=== PATIENT | male | born 2000 | race Caucasian/White ===

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

== ENCOUNTER 2022-01-29 04:10 | Observation (INO) ==
[2022-01-29] MEDS ORDERED: Ondansetron 4 mg VIAL 2 MG/ML 2 ml VIAL IV ONE (04:41)
[2022-01-29] MEDS ORDERED: NS 0.9% 1000 ml BAG 1,000 ML IV ONE (04:41)
[2022-01-29 05:01] LABS: ABS Eosinophils 0.3 10^3/ul (0-0.6); ABS Lymphocytes 2.3 10^3/ul (1.0-4.8); ABS Monocytes 0.2 10^3/ul (0-0.8); ABS Neutrophils 17.5 10^3/ul (1.5-7.7); Eosinophil % 1.3 %; Hematocrit 41 % (42-52); Hemoglobin 13.9 g/dL (14.0-18.0); Lymphocyte % 11.3 %; Mean Corpuscular HGB Conc 34 g/dL (31-36); Mean Corpuscular Hemoglobin 30 pg (27-31); Mean Corpuscular Volume 86 fL (80-94); Mean Platelet Volume 7.3 fL (7.4-10.4); Platelet Count 315 10^3/uL (150-450); Red Blood Count 4.69 10^6 /uL (4.18-5.48); Red Cell Distribution Width 12 % (10-15); White Blood Count 20.3 10^3/uL (3.5-10.8)
[2022-01-29 05:36] LABS: Amylase 38 U/L (29-103)
[2022-01-29 05:54] LABS: ALT 20 U/L (7-52); AST 35 U/L (13-39); Albumin 4.7 g/dL (3.2-5.2); Alkaline Phosphatase 105 U/L (35-149); Anion Gap 9 mmol/L (2-11); Blood Urea Nitrogen 24 mg/dL (6-24); C Reactive Protein < 1.00 mg/L (<8.01); CO2 Carbon Dioxide 25 mmol/L (22-32); Calcium 9.5 mg/dL (8.6-10.3); Chloride 102 mmol/L (101-111); Globulin 2.4 g/dL (2-4); Glucose 200 mg/dL (70-100); Lipase 11 U/L (11.0-82.0); Potassium 3.7 mmol/L (3.5-5.0); Sodium 136 mmol/L (135-145); Total Protein 7.1 g/dL (6.4-8.9); eGFR CKD-EPI 97.5 (>60)
[2022-01-29] MEDS ORDERED: Piperacillin/Tazobac ADVAN 3.375 GM in NS 0.9% 100 ml BAG 100 ML IV ONE (06:05)
[2022-01-29] MEDS ORDERED: NS 0.9% 1000 ml BAG 1,000 ML IV SCH (06:15)
[2022-01-29 06:28] LABS: Urine Appearance Clear; Urine Bilirubin Negative (Negative); Urine Blood Negative (Negative); Urine Color Yellow; Urine Glucose Trace (100mg/dL) (Negative); Urine Ketones Negative (Negative); Urine Nitrite Negative (Negative); Urine Protein Negative (Negative); Urine Specific Gravity 1.022 (1.002-1.030); Urine Urobilinogen 0.2 (Negative) (Negative)
[2022-01-29 06:47] LABS: Urine Benzodiazepine Screen None Detected (None Detect); Urine Cannabinoids Screen Presumptive Positive (None Detect); Urine Opiates Screen None Detected (None Detect)
[2022-01-29] MEDS ORDERED: Iohexol 350 (CONTRAST) 500 ML MDV IV ONE (07:02)
[2022-01-29] MEDS ORDERED: Lactated Ringers 1000 ml BAG 1,000 ML IV ONE ×2 (08:09→14:25)
[2022-01-29 10:18] LABS: Acetaminophen < 15 mcg/mL; Alcohol, S < 13 mg/dL (<13); Salicylate < 2.50 mg/dL (<30)
[2022-01-29 10:22] LABS: ABS Lymphocytes 0.5 10^3/ul (1.0-4.8); ABS Monocytes 0.6 10^3/ul (0-0.8); ABS Neutrophils 12.2 10^3/ul (1.5-7.7); Eosinophil % 0.2 %; Hematocrit 41 % (42-52); Lymphocyte % 3.9 %; Mean Corpuscular HGB Conc 34 g/dL (31-36); Mean Corpuscular Hemoglobin 29 pg (27-31); Mean Corpuscular Volume 86 fL (80-94); Mean Platelet Volume 7.2 fL (7.4-10.4); Nucleated Red Blood Cells % 0.1; Platelet Count 270 10^3/uL (150-450); Red Cell Distribution Width 13 % (10-15); White Blood Count 13.4 10^3/uL (3.5-10.8)
[2022-01-29 10:52] LABS: ALT 364 U/L (7-52); AST 595 U/L (13-39); Albumin 4.6 g/dL (3.2-5.2); Albumin/Globulin Ratio 1.9 (1-3); Alkaline Phosphatase 130 U/L (35-149); Anion Gap 3 mmol/L (2-11); Blood Urea Nitrogen 17 mg/dL (6-24); CO2 Carbon Dioxide 26 mmol/L (22-32); CRP High Sensitivity 6.36 mg/L (<2.00); Calcium 9.5 mg/dL (8.6-10.3); Chloride 106 mmol/L (101-111); Globulin 2.4 g/dL (2-4); Glucose 100 mg/dL (70-100); Lipase < 10 U/L (11.0-82.0); Potassium 4.3 mmol/L (3.5-5.0); Sodium 135 mmol/L (135-145); eGFR CKD-EPI 120.6 (>60)
[2022-01-29 11:52] LABS: Urine Appearance Clear; Urine Color Yellow
[2022-01-29 11:53] LABS: Urine Bilirubin Negative (Negative); Urine Blood Negative (Negative); Urine Glucose Negative (Negative); Urine Ketones Negative (Negative); Urine Nitrite Negative (Negative); Urine Protein Negative (Negative); Urine Specific Gravity 1.015 (1.005-1.030); Urine Urobilinogen 0.2 (Negative) (Negative); Urine pH 8.5 (5.0-9.0)
[2022-01-29 12:28] LABS: Hepatitis B Surface Antigen Nonreactive (Nonreactive)
[2022-01-29 12:33] LABS: Hepatitis A Ab IgM Negative (Negative)
[2022-01-29 12:34] LABS: Hepatitis B Core IgM Nonreactive (Nonreactive)
[2022-01-29 12:45] LABS: Hepatitis C Antibody Negative (Negative)
[2022-01-29 12:46] LABS: Erythrocyte Sed Rate 0 mm/Hr (0-14)
[2022-01-29] MEDS: Nicotine GUM 2MG FRUIT FLAVOR PO PRN ×2 (15:17→17:48)
[2022-01-29 16:31] LABS: Albumin 4.3 g/dL (3.2-5.2); Albumin/Globulin Ratio 1.9 (1-3); Calcium 8.9 mg/dL (8.6-10.3); Globulin 2.3 g/dL (2-4); Potassium 4.3 mmol/L (3.5-5.0); Total Bilirubin 1.1 mg/dL (0.2-1.0); Total Protein 6.6 g/dL (6.4-8.9); eGFR CKD-EPI 113.2 (>60)
[2022-01-29 16:59] LABS: LDH 503 U/L (140-271)
[2022-01-30 05:56] LABS: ABS Eosinophils 0.4 10^3/ul (0-0.6); ABS Lymphocytes 2.6 10^3/ul (1.0-4.8); ABS Monocytes 0.5 10^3/ul (0-0.8); ABS Neutrophils 3.8 10^3/ul (1.5-7.7); Eosinophil % 5.3 %; Hematocrit 40 % (42-52); Hemoglobin 13.2 g/dL (14.0-18.0); Lymphocyte % 35.3 %; Mean Corpuscular HGB Conc 33 g/dL (31-36); Mean Corpuscular Hemoglobin 29 pg (27-31); Mean Corpuscular Volume 88 fL (80-94); Mean Platelet Volume 7.1 fL (7.4-10.4); Nucleated Red Blood Cells % 0.1; Platelet Count 247 10^3/uL (150-450); Red Blood Count 4.49 10^6 /uL (4.18-5.48); Red Cell Distribution Width 13 % (10-15); White Blood Count 7.3 10^3/uL (3.5-10.8)
[2022-01-30 06:09] LABS: INR 1.29 (0.89-1.11)
[2022-01-30 06:33] LABS: Albumin 4.2 g/dL (3.2-5.2); Albumin/Globulin Ratio 1.8 (1-3); Calcium 9.1 mg/dL (8.6-10.3); Globulin 2.3 g/dL (2-4); Potassium 4.7 mmol/L (3.5-5.0); Total Bilirubin 0.9 mg/dL (0.2-1.0); Total Protein 6.5 g/dL (6.4-8.9); eGFR CKD-EPI 104.2 (>60)
[2022-01-30] MEDS ORDERED: Naltrexone INJ 380 MG IM ONE (09:26)
[2022-01-30 11:00] VITALS: BP 114/70
[2022-01-31 12:49] LABS: Urine Alcohol Negative mg/dL (Cutoff: 10); Urine Barbiturates Negative; Urine Benzodiazepines Negative; Urine Cocaine Presumptive Positive ng/mL; Urine Methadone Negative (Negative); Urine Opiates Negative (Negative); Urine Phencyclidine Negative ng/mL (Cutoff: 25); Urine Tetrahydrocannabinol Presumptive Positive ng/mL (Cutoff: 50)
[2022-01-31 12:54] LABS: EBV Capsid Ag IgG Ab Positive (Negative); EBV Capsid Ag IgM Ab Negative (Negative); Epstein-Barr Nuclear Antigen Positive (Negative)
[2022-02-01 13:36] LABS: CMV DNA DETECT/QT, P Undetected IU/mL (Undetected)
[2022-02-04 05:23] LABS: Urine Carboxy THC Confirm 359 ng/mL; Urine THC Interpretation Positive.
[2022-02-05 05:26] LABS: Ur Benzoylecgonine Confirm 426 ng/mL (Cutoff: 50); Urine Cocaine Confirm (GC/MS) Negative ng/mL (Cutoff: 50); Urine Cocaine Interpretation Positive.
[2022-02-05 06:36] LABS: Ur Benzoylecgonine Confirm 181 ng/mL (Cutoff: 50); Urine Cocaine Confirm (GC/MS) Negative ng/mL (Cutoff: 50); Urine Cocaine Interpretation Positive.
== END 2022-01-30 11:50 | disposition home or self-care (01) ==
LOC: EDHOLD 04:10 → ED 04:10 → EDHOLD 13:37 → MED 14:10
PROVIDERS: ADMIT Student in an Organized Health Care Education/Training Program; ATTEND Student in an Organized Health Care Education/Training Program